=== PATIENT | male | born 1975 | race Caucasian/White ===

== ENCOUNTER 2017-03-13 14:18 | Emergency (ER) | payer OTHER ==
[2017-03-13 14:46] VITALS: BP 113/79
[2017-03-13] MEDS ORDERED: Ketorolac 60 MG/2 ML SDV IM ONE (15:34)
--- NOTE | 2017-03-13 15:36 | EDM.PDOC ---
ED HPI GENERAL MEDICAL PROBLEM - General Chief Complaint: Back Pain or Injury Stated Complaint: BACK PAIN Time Seen by Provider: 03/13/17 15:00 Source of Information: Reports: Patient, RN Notes Reviewed History Limitations: Reports: No Limitations - History of Present Illness INITIAL COMMENTS - FREE TEXT/NARRATIVE: 41 year old male presents to the ED with right sided low back pain that radiates down his right leg. The symptoms started after he fell down some stairs two weeks ago. He was taking Meloxicam as prescribed by his PCP. This was helping but he ran out. No numbness, tingling, weakness, or loss of bowel or bladder function. Right Lower Back Pain Score (Numeric/FACES): 7 - Related Data Allergies Allergy/AdvReac Type Severity Reaction Status Date / Time bee venom protein (honey bee) Allergy Anaphylactic Verified 03/13/17 14:46 Shock Penicillins Allergy Cannot Verified 04/24/15 15:26 Remember shellfish derived Allergy Cannot Verified 04/24/15 13:57 Remember Home Meds: Home Meds Albuterol Sulfate [Albuterol Sulfate HFA] 2 puff INH Q4HR PRN 04/24/15 [History] Albuterol [Proventil Neb Soln] 2.5 mg NEB Q4H #100 neb 04/29/15 [Rx] Orphenadrine [Norflex] 100 mg PO BID #15 tab.er 03/13/17 [Rx] predniSONE [Prednisone] 40 mg PO DAILY #10 tablet 03/13/17 [Rx] Past Medical History - Past Surgical History Other Musculoskeletal Surgeries/Procedures:: Knee reconstructive surgery 22 years ago Social & Family History - Family History Family Medical History: Noncontributory - Tobacco Use Smoking Status *Q: Current Every Day Smoker Years of Tobacco use: 18 Packs/Tins Daily: 0.5 Used Tobacco, but Quit: No Month Tobacco Last Used: CURRENTLY SMOKE - Caffeine Use Caffeine Use: Reports: Coffee - Alcohol Use Days Per Week of Alcohol Use: 1 Number of Drinks Per Day: 2 Total Drinks Per Week: 2 - Recreational Drug Use Recreational Drug Use: No ED ROS GENERAL - Review of Systems Review Of Systems: See Below Constitutional: Reports: No Symptoms. Denies: Fever, Chills Musculoskeletal: Reports: Back Pain Neurological: Reports: Paresthesia. Denies: Numbness, Tingling, Difficulty Walking, Weakness ED EXAM,LOWER BACK PAIN/INJURY - Physical Exam Exam: See Below Exam Limited By: No Limitations General Appearance: Alert, WD/WN, No Apparent Distress Respiratory/Chest: No Respiratory Distress, Lungs Clear Cardiovascular: Regular Rate, Rhythm Back Exam: Normal Inspection, Full Range of Motion, Other (tenderness with palpation to right SI joint. Mild amount of muscle spasm noted to low back. ). No: CVA Tenderness (L), CVA Tenderness (R), Vertebral Tenderness Neurological: Alert, Normal Mood/Affect, Normal Dorsiflexion, Normal Plantar Flexion, Normal Gait, No Motor/Sensory Deficits, Oriented x 3 Skin Exam: Warm, Dry, Intact Course - Vital Signs Last Recorded V/S: Last Vital Signs Temp 97.2 F 03/13/17 14:42 Pulse 90 03/13/17 14:42 Resp 16 03/13/17 14:42 BP 113/79 03/13/17 14:42 Pulse Ox 96 03/13/17 14:42 - Orders/Labs/Meds Meds: Medications Discontinued Medications Generic Name Dose Route Start Last Admin Trade Name Ulisses PRN Reason Stop Dose Admin Ketorolac Tromethamine 60 mg 03/13/17 15:34 Toradol IM 03/13/17 15:35 ONETIME ONE Departure - Departure Time of Disposition: 15:34 Disposition: Home, Self-Care 01 Condition: Good Clinical Impression: Muscle spasm Sciatica Qualifiers: Laterality: right Qualified Code(s): M54.31 - Sciatica, right side - Discharge Information Prescriptions: Orphenadrine [Norflex] 100 mg PO BID #15 tab.er predniSONE [Prednisone] 40 mg PO DAILY #10 tablet Referrals: Amy Salmeron PA-C [Primary Care Provider] - Forms: ED Department Discharge, ED Return to Work/School Form Additional Instructions: Heating pad to low back Follow-up with Amy Salmeron on Friday Prednisone 40mg once a day for 5 days, start today Orphenadrine 100mg every 12 hours as needed for muscle spasm Return to ER as needed
== END 2017-03-13 16:04 | disposition home or self-care (01) ==
LOC: JD.ED 14:18
DX: M62.830 Muscle spasm of back (principal); M54.31 Sciatica, right side; F17.210 Nicotine dependence, cigarettes, uncomplicated; Z88.0 Allergy status to penicillin; Z91.013 Allergy to seafood; Z91.030 Bee allergy status; Z98.890 Other specified postprocedural states; Z79.899 Other long term (current) drug therapy; W10.9XXA Fall (on) (from) unspecified stairs and steps, initial encounter
CPT/HCPCS: 96372; 99283; J1885